=== PATIENT | female | born 1955 | race Caucasian/White ===

== ENCOUNTER 2019-05-20 11:20 | Inpatient (IN) | payer MEDICARE, MEDICAID ==
[~2019-05-20] VITALS: Ht 167.6 cm; Wt 72.6 kg
[~2019-05-20 11:20] MED LIST: DRON400T PO; LISI2.5T47 PO; LORA-653 PO; MORP1TAB12 PO; PERCOT PO; RANO500T2 PO
[2019-05-20 12:41] LABS: Basophils # (auto) 0 uL; Basophils % (auto) 0.7 % (0.0-2.0); Eosinophils # (auto) 0.1 uL; Hematocrit 49.6 % (36.0-46.0); Hemoglobin 16.6 g/dL (12.2-16.2); Lymphocytes # (auto) 1.1 uL; Lymphocytes % (auto) 19.5 % (10.0-50.0); Mean Corpuscular Hemoglobin 30.4 pg (28.0-32.0); Mean Corpuscular Hgb Conc. 33.5 g/dL (32.0-36.0); Mean Corpuscular Volume 90.5 fL (80.0-100.0); Monocytes # (auto) 0.3 uL; Monocytes % (auto) 5.4 % (0.0-12.0); Neutrophils # (auto) 4.3 uL; Neutrophils % (auto) 73.4 % (37.0-80.0); Nucleated Red Blood Cells % 0.1 %; Platelet Count (auto) 102 10^3/uL (140-450); Red Blood Cells 5.48 10^6/uL (4.0-5.20); White Blood Cell 5.8 10^3/uL (4.4-10.8)
[2019-05-20 12:51] LABS: Alanine Aminotransferase 39 U/L (13-56); Albumin 3.7 g/dL (3.4-5.0); Anion Gap 9 (5-15); Aspartate Aminotransferase 31 U/L (15-37); BUN/Creatinine Ratio 22.5; Blood Urea Nitrogen 18 mg/dL (7-18); Calcium 9.3 mg/dL (8.5-10.1); Carbon Dioxide 25 mmol/L (21-32); Chloride 108 mmol/L (98-107); GFR African American 92 mL/min; GFR Non-African American 76 mL/min; Glucose 139 mg/dL (74-106); Magnesium 2.5 mg/dL (1.6-2.6); Potassium 3.9 mmol/L (3.5-5.1); Sodium 142 mmol/L (136-145)
[2019-05-20 12:56] LABS: Alkaline Phosphatase 199 U/L (45-117); Bilirubin, Total 0.5 mg/dL (0.2-1.0); Total Protein 8.3 g/dL (6.4-8.2)
[2019-05-20] MEDS ORDERED: IOHEXOL 350 MG/ML 100ML IJ ONE (13:28)
[2019-05-20] MEDS ORDERED: ACETAMINOPHEN 500 MG TAB PO PRN (14:45)
[2019-05-20] MEDS ORDERED: NITROGLYCERIN 0.4 MG SL TAB SL PRN (14:45)
[2019-05-20] MEDS ORDERED: PROMETHAZINE HCL 25 MG/ML 1ML IV PRN (14:45)
[2019-05-20] MEDS ORDERED: OXYCODONE W/ ACETAMINOPHEN 5/325MG TABLET PO PRN (14:45)
[2019-05-20] MEDS ORDERED: TEMAZEPAM 15 MG CAP PO PRN (14:45)
[2019-05-20] MEDS ORDERED: MORPHINE SULFATE 4 MG/ML SYR/VIAL IV PRN (14:45)
[2019-05-20] MEDS ORDERED: MORPHINE SULF INJ 2 MG/ML SYRINGE 1ML IV PRN (14:45)
[2019-05-20] MEDS: SODIUM CHLORIDE 0.9% 1,000 ML IV SCH (14:57)
[2019-05-20 16:01] LABS: CRP High Sensitivity < 0.02 mg/dL (< 0.3)
[2019-05-20 16:45] VITALS: BP 154/76
--- NOTE | 2019-05-20 16:45 | NUR ---
Telemetry admit from ER AMYANSHUL R admitted to Telemetry unit after verbal report received. Patient oriented to Allyn Chin, primary RN, unit, room, bed, and unit policies regarding patient care and visiting hours. Patient now on continuous telemetry monitoring, tele box #8 and telemetry reading on arrival to unit is sinus bradycardia @ 58 bpm. IV to left forearm, 20 gauge, patent and infusing 0.9% NS @ 75 ml/hr. Patient placed on bedside oxygen, weighed by bedscale and encouraged to call if they need something. All questions and concerns addressed, patient verbalized understanding.
[2019-05-20 18:08] VITALS: BP 146/93
--- NOTE | 2019-05-20 19:30 | NUR ---
Care endorsed to ALAN High, night nurse.
[2019-05-20 20:00] VITALS: BP 134/90
[2019-05-20 22:00] VITALS: BP 134/90
[2019-05-20] MEDS ORDERED: RANOLAZINE ER 500 MG TAB PO SCH (22:00)
[2019-05-20] MEDS ORDERED: DRONEDARONE HCL 400 MG TAB PO SCH (22:00)
[2019-05-20] MEDS ORDERED: DRONEDARONE HYDROCHLORIDE 400 MG PO SCH (22:00)
[2019-05-20] MEDS ORDERED: ATORVASTATIN 20 MG TAB PO SCH (22:00)
[2019-05-20] MEDS ORDERED: METOPROLOL TARTRATE 25 MG TAB PO SCH (22:00)
--- NOTE | 2019-05-20 23:57 | NUR ---
Opening Shift Note Assumed care of patient, awake and alert. No S/S of distress/SOB or pain. Instructed on POC and to call for assist PRN, will continue to monitor for changes Q1hr and PRN. Addendum: 05/20/19 at 2359 by FROILAN MACIEL RN RN Time of initial assessment, 1999
[2019-05-21] MEDS: SODIUM CHLORIDE 0.9% 1,000 ML IV SCH (04:05)
[2019-05-21 05:00] VITALS: BP 152/68
--- NOTE | 2019-05-21 07:00 | NUR ---
Patient's room checked frequently throughout the night. Patient noted sleeping comfortably. No distress or complaints. This morning patient noted with increased agitation. She states "I can get better care than this at home". I questioned patient and asked was there anything I can do to help and could she wait until she is seen by the MD before departure. She replied with, no. Telemetry box noted in the bed. IV pulled out of her left arm with cannula intact. Patient left AMA. Tele box delivered to BRYAN.
[2019-05-21 07:01] LABS: Cholesterol 173 mg/dL (< 200); Triglycerides 89 mg/dL (< 150)
[2019-05-21 07:03] LABS: HDL Cholesterol 74 mg/dL (40-59); LDL Cholesterol 99 mg/dL (< 100)
[2019-05-21] MEDS ORDERED: ENOXAPARIN SOD 40 MG/0.4 ML SYRINGE SC SCH (10:00)
[2019-05-21] MEDS ORDERED: LISINOPRIL 5 MG TAB PO SCH (10:00)
[2019-05-21] MEDS ORDERED: PANTOPRAZOLE 40 MG TAB PO SCH (10:00)
[2019-05-21] MEDS ORDERED: NITROGLYCERIN 0.2MG/HR TOPICAL PATCH TD SCH (10:00)
[2019-05-21] MEDS ORDERED: ASPirin 81 mg TAB PO SCH (10:00)
== END 2019-05-21 07:00 | disposition left against medical advice (07) | DRG 313 ==
LOC: ER 11:25 → TELE 11:26 → TELE-WESTW 15:40
PROVIDERS: ADMIT Internal Medicine; ATTEND Internal Medicine
DX: R07.89 Other chest pain (principal); R73.9 Hyperglycemia, unspecified; I11.0 Hypertensive heart disease with heart failure; D69.6 Thrombocytopenia, unspecified; I50.9 Heart failure, unspecified; J44.9 Chronic obstructive pulmonary disease, unspecified; E78.5 Hyperlipidemia, unspecified; R56.9 Unspecified convulsions; I45.6 Pre-excitation syndrome; G89.4 Chronic pain syndrome; I25.10 Atherosclerotic heart disease of native coronary artery without angina pectoris; F17.210 Nicotine dependence, cigarettes, uncomplicated; I48.91 Unspecified atrial fibrillation; Z90.49 Acquired absence of other specified parts of digestive tract; Z90.710 Acquired absence of both cervix and uterus; Z82.5 Family history of asthma and other chronic lower respiratory diseases; Z85.41 Personal history of malignant neoplasm of cervix uteri; I25.2 Old myocardial infarction; Z88.5 Allergy status to narcotic agent; Z53.21 Procedure and treatment not carried out due to patient leaving prior to being seen by health care provider
CPT/HCPCS: 36415; 71045; 71275; 80053; 80061; 82550; 83605; 83735; 83880; 84484; 85025; 85652; 86141; 87040; 93005; 94761; G0378

== ENCOUNTER 2019-07-27 14:53 | Inpatient (IN) | payer MEDICARE, MEDICAID | END 2019-07-30 18:43 | disposition home or self-care (01) | LOC: TELE-WESTW 20:51 → ER 14:53 → TELE-WESTW 14:54 | DX: R53.1 Weakness (principal); N39.0 Urinary tract infection, site not specified; L02.414 Cutaneous abscess of left upper limb; F11.20 Opioid dependence, uncomplicated; I11.0 Hypertensive heart disease with heart failure; D69.6 Thrombocytopenia, unspecified; I25.10 Atherosclerotic heart disease of native coronary artery without angina pectoris; J44.9 Chronic obstructive pulmonary disease, unspecified; E78.5 Hyperlipidemia, unspecified; G89.4 Chronic pain syndrome; G25.0 Essential tremor; M54.2 Cervicalgia ==

== ENCOUNTER 2023-03-29 08:23 | Inpatient (IN) | payer MEDICARE, MEDICAID ==
[~2023-03-29] VITALS: Ht 160 cm; Wt 73.3 kg
[~2023-03-29 08:23] MED LIST changes: +DOXY-286 PO; -LORA-653 PO; +LORA0.5T19 PO
[2023-03-29 08:57] LABS: Basophils # (auto) 0 10 ^3/uL (0-0.2); Basophils % (auto) 0.5 % (0.0-2.0); Eosinophils # (auto) 0 10 ^3/uL (0-0.8); Eosinophils % (auto) 0.1 % (0.0-7.0); Hematocrit 43.3 % (36.0-46.0); Hemoglobin 14.5 g/dL (12.2-16.2); Lymphocytes # (auto) 0.7 10 ^3/uL (0.4-5.4); Lymphocytes % (auto) 13.3 % (10.0-50.0); Mean Corpuscular Hgb Conc. 33.5 g/dL (32.0-36.0); Mean Corpuscular Volume 89.4 fL (80.0-100.0); Monocytes # (auto) 0.4 10 ^3/uL (0-1.3); Monocytes % (auto) 7.7 % (0.0-12.0); Neutrophils % (auto) 78.4 % (37.0-80.0); Nucleated Red Blood Cells % 0.1 %; Red Blood Cells 4.85 10^6/uL (4.0-5.20); Red Cell Distribution Width 13.6 % (11.8-14.3); White Blood Cell 5.1 10^3/uL (4.4-10.8)
[2023-03-29 09:04] LABS: INR 1.12 (0.9-1.15); Partial Thromboplastin Time 36.7 sec (24.6-33.4)
[2023-03-29] MEDS ORDERED: dilTIAZem 25 MG/5 ML VIAL IV ONE (09:15)
[2023-03-29] MEDS ORDERED: dilTIAZem 125mg/125ml BAG KIT 125 ML IV ONE (09:15)
[2023-03-29 09:17] LABS: Albumin 3.4 g/dL (3.4-5.0); Calcium 8.6 mg/dL (8.5-10.1); Potassium 4.4 mmol/L (3.5-5.1)
[2023-03-29 09:22] LABS: BUN/Creatinine Ratio 24.6 (10.0-20.0); Bilirubin, Total 1.1 mg/dL (0.2-1.0); Total Protein 6.3 g/dL (6.4-8.2)
[2023-03-29] MEDS ORDERED: AMIODARONE HCL 150 MG in D5W 5% 100 ML IV ONE (09:45)
[2023-03-29] MEDS ORDERED: AMIODARONE 450mg/250ml AE 250 ML IV SCH (10:00)
[2023-03-29] MEDS ORDERED: FUROSEMIDE 40 MG/4 ML VIAL IV ONE (11:00)
[2023-03-29 12:20] LABS: Urine Bacteria FEW /hpf (None Seen); Urine Blood Negative /uL (Negative); Urine Specific Gravity 1.008 (1.001-1.035); Urine WBC 8 /hpf (0 - 5)
[2023-03-29 14:03] LABS: Cholesterol 131 mg/dL (< 200)
[2023-03-29 14:06] LABS: HDL Cholesterol 63 mg/dL (40-59); LDL Cholesterol 61 mg/dL (< 100); Triglycerides 76 mg/dL (< 150)
[2023-03-29] MEDS ORDERED: NITROGLYCERIN 0.4 MG SL TAB SL PRN (14:30)
[2023-03-29] MEDS ORDERED: MORPHINE SULFATE INJ 2 MG/ml SYRG IV PRN (14:30)
[2023-03-29] MEDS ORDERED: ALBUTEROL SULF 2.5 MG/0.5ML(0.5%) NEB SOLN NEB PRN (15:30)
[2023-03-29] MEDS ORDERED: NICOTINE 7MG/24HR TOPICAL PATCH TD ONE (15:30)
[2023-03-29] MEDS ORDERED: IPRATROPIUM BROM 0.5 MG/2.5ML INH SOL NEB PRN (15:30)
[2023-03-29] MEDS: cefTRIAXone 1GM/50ML D5W 50 ML IV SCH (15:36)
[2023-03-29 15:57] LABS: Alcohol, Urine < 3.0 mg/dL (0-10); Amphetamine Screen, Urine NEGATIVE (NEGATIVE); Barbiturate Scree,Urine NEGATIVE (NEGATIVE); Benzodiazephine Screen, Urine NEGATIVE (NEGATIVE); Cannabinoid Screen, Urine NEGATIVE (NEGATIVE); Cocaine Screen, Urine NEGATIVE (NEGATIVE); Opiate Scree,Urine NEGATIVE (NEGATIVE); Phencyclidine Screen, Urine NEGATIVE (NEGATIVE)
[2023-03-29] MEDS ORDERED: DIGOXIN (250MCG/ML) 2 ML AMPULE IV ONE (16:15)
[2023-03-29 17:23] VITALS: BP 115/74
[2023-03-29 19:57] LABS: Cholesterol 111 mg/dL (< 200); HDL Cholesterol 56 mg/dL (40-59); LDL Cholesterol 53 mg/dL (< 100); Triglycerides 80 mg/dL (< 150)
[2023-03-29] MEDS: AMIODARONE 450mg/250ml AE 250 ML IV SCH (20:30)
[2023-03-29] MEDS: LISINOPRIL 5 MG TAB PO SCH (22:44)
[2023-03-29] MEDS: MORPHINE SULF 15mg ER tab PO SCH (22:44)
[2023-03-29] MEDS: ATORVASTATIN 20 MG TAB PO SCH (22:44)
[2023-03-29] MEDS: RANOLAZINE ER 500 MG TAB PO SCH (22:45)
[2023-03-29] MEDS: METOPROLOL TARTRATE 50 MG TAB PO SCH (22:45)
[2023-03-29] MEDS: ENOXAPARIN SOD 60 MG/0.6 ML SYRINGE SC SCH (22:45)
[2023-03-29 23:49] VITALS: BP 133/105
[2023-03-30] VITALS (7 sets, daily range): BP systolic 99–136; BP diastolic 54–78
[2023-03-30 07:00] LABS: Basophils # (auto) 0 10 ^3/uL (0-0.2); Basophils % (auto) 0.4 % (0.0-2.0); Eosinophils # (auto) 0 10 ^3/uL (0-0.8); Eosinophils % (auto) 0.2 % (0.0-7.0); Hematocrit 38.4 % (36.0-46.0); Hemoglobin 13.2 g/dL (12.2-16.2); Lymphocytes # (auto) 1.1 10 ^3/uL (0.4-5.4); Lymphocytes % (auto) 26.3 % (10.0-50.0); Mean Corpuscular Hemoglobin 30.6 pg (28.0-32.0); Mean Corpuscular Hgb Conc. 34.3 g/dL (32.0-36.0); Mean Corpuscular Volume 89.1 fL (80.0-100.0); Monocytes # (auto) 0.3 10 ^3/uL (0-1.3); Monocytes % (auto) 7.5 % (0.0-12.0); Neutrophils # (auto) 2.8 10 ^3/uL (1.6-8.6); Neutrophils % (auto) 65.6 % (37.0-80.0); Nucleated Red Blood Cells % 0.2 %; Red Blood Cells 4.31 10^6/uL (4.0-5.20); Red Cell Distribution Width 13.2 % (11.8-14.3); White Blood Cell 4.2 10^3/uL (4.4-10.8)
[2023-03-30 07:32] LABS: Albumin 2.8 g/dL (3.4-5.0); BUN/Creatinine Ratio 23.3 (10.0-20.0); Bilirubin, Total 0.5 mg/dL (0.2-1.0); Calcium 8.6 mg/dL (8.5-10.1); Total Protein 5.8 g/dL (6.4-8.2)
[2023-03-30] MEDS ORDERED: ASPirin 81 mg TAB PO SCH (10:00)
[2023-03-30] MEDS ORDERED: NICOTINE 7MG/24HR TOPICAL PATCH TD SCH (10:00)
[2023-03-30] MEDS ORDERED: PANTOPRAZOLE 40 MG/10 ML VIAL INJ IV SCH (10:00)
[2023-03-30] MEDS: cefTRIAXone 1GM/50ML D5W 50 ML IV SCH (10:28)
[2023-03-30] MEDS: METOPROLOL TARTRATE 50 MG TAB PO SCH ×2 (10:29→21:35)
[2023-03-30] MEDS: ENOXAPARIN SOD 60 MG/0.6 ML SYRINGE SC SCH ×2 (10:29→21:37)
[2023-03-30] MEDS: FUROSEMIDE 20 MG/2 ML VIAL IV SCH (10:29)
[2023-03-30] MEDS: RANOLAZINE ER 500 MG TAB PO SCH ×2 (10:30→21:35)
[2023-03-30] MEDS: MORPHINE SULF 15mg ER tab PO SCH ×2 (10:30→21:34)
[2023-03-30] MEDS: LISINOPRIL 5 MG TAB PO SCH (10:31)
[2023-03-30] MEDS: POTASSIUM CHLORIDE 8 MEQ TAB PO SCH (10:36)
[2023-03-30] MEDS: AMIODARONE 450mg/250ml AE 250 ML IV SCH (11:07)
[2023-03-30] MEDS ORDERED: NICOTINE 14 MG/24HR TOPICAL PATCH TD ONE (12:00)
[2023-03-30] MEDS: LORazepam 0.5 MG TAB PO PRN ×2 (13:01→21:41)
[2023-03-30] MEDS: ATORVASTATIN 20 MG TAB PO SCH (21:34)
[2023-03-30] MEDS: AMIODARONE HCL 200 MG TAB PO SCH (21:35)
[2023-03-31] VITALS (7 sets, daily range): BP systolic 110–127; BP diastolic 60–85
[2023-03-31 06:32] LABS: Basophils # (auto) 0 10 ^3/uL (0-0.2); Basophils % (auto) 0.5 % (0.0-2.0); Eosinophils # (auto) 0 10 ^3/uL (0-0.8); Eosinophils % (auto) 0.1 % (0.0-7.0); Hematocrit 39.8 % (36.0-46.0); Hemoglobin 13.6 g/dL (12.2-16.2); Lymphocytes % (auto) 27.1 % (10.0-50.0); Mean Corpuscular Hemoglobin 30.2 pg (28.0-32.0); Mean Corpuscular Hgb Conc. 34.1 g/dL (32.0-36.0); Mean Corpuscular Volume 88.6 fL (80.0-100.0); Monocytes # (auto) 0.4 10 ^3/uL (0-1.3); Monocytes % (auto) 9.5 % (0.0-12.0); Neutrophils # (auto) 2.4 10 ^3/uL (1.6-8.6); Neutrophils % (auto) 62.8 % (37.0-80.0); Nucleated Red Blood Cells % 0.2 %; Red Blood Cells 4.49 10^6/uL (4.0-5.20); White Blood Cell 3.8 10^3/uL (4.4-10.8)
[2023-03-31 06:54] LABS: BUN/Creatinine Ratio 30.3 (10.0-20.0); Calcium 8.5 mg/dL (8.5-10.1)
[2023-03-31] MEDS: ENOXAPARIN SOD 60 MG/0.6 ML SYRINGE SC SCH (09:36)
[2023-03-31] MEDS: cefTRIAXone 1GM/50ML D5W 50 ML IV SCH (09:36)
[2023-03-31] MEDS: NICOTINE 14 MG/24HR TOPICAL PATCH TD SCH (09:37)
[2023-03-31] MEDS: FUROSEMIDE 20 MG/2 ML VIAL IV SCH (09:37)
[2023-03-31] MEDS: AMIODARONE HCL 200 MG TAB PO SCH ×2 (09:37→22:59)
[2023-03-31] MEDS: METOPROLOL TARTRATE 50 MG TAB PO SCH ×2 (09:38→22:00)
[2023-03-31] MEDS: MORPHINE SULF 15mg ER tab PO SCH ×2 (09:38→22:54)
[2023-03-31] MEDS: LORazepam 0.5 MG TAB PO PRN (09:38)
[2023-03-31] MEDS: RANOLAZINE ER 500 MG TAB PO SCH ×2 (09:38→22:53)
[2023-03-31] MEDS: POTASSIUM CHLORIDE 8 MEQ TAB PO SCH (09:39)
[2023-03-31] MEDS ORDERED: methylPREDNISolone SOD SUCC 40 MG/ML VL IV ONE (12:15)
[2023-03-31] MEDS ORDERED: methylPREDNISolone SOD SUCC 125 MG/2 ML VL IV ONE (17:00)
[2023-03-31] MEDS: ATORVASTATIN 20 MG TAB PO SCH (22:54)
[2023-03-31] MEDS: APIXABAN 5 MG TAB PO SCH (22:54)
[2023-04-01 05:00] VITALS: BP 120/57
[2023-04-01 06:52] LABS: Basophils # (auto) 0 10 ^3/uL (0-0.2); Basophils % (auto) 0.8 % (0.0-2.0); Eosinophils # (auto) 0 10 ^3/uL (0-0.8); Eosinophils % (auto) 0.3 % (0.0-7.0); Hematocrit 40.1 % (36.0-46.0); Hemoglobin 14.2 g/dL (12.2-16.2); Lymphocytes # (auto) 0.6 10 ^3/uL (0.4-5.4); Lymphocytes % (auto) 9.5 % (10.0-50.0); Mean Corpuscular Hemoglobin 31.2 pg (28.0-32.0); Mean Corpuscular Hgb Conc. 35.3 g/dL (32.0-36.0); Mean Corpuscular Volume 88.4 fL (80.0-100.0); Monocytes # (auto) 0.2 10 ^3/uL (0-1.3); Monocytes % (auto) 3.1 % (0.0-12.0); Neutrophils % (auto) 86.3 % (37.0-80.0); Nucleated Red Blood Cells % 0.8 %; Red Blood Cells 4.54 10^6/uL (4.0-5.20); Red Cell Distribution Width 13.3 % (11.8-14.3); White Blood Cell 5.8 10^3/uL (4.4-10.8)
[2023-04-01 08:00] VITALS: BP 104/50
[2023-04-01 08:30] VITALS: BP 104/50
[2023-04-01] MEDS: cefTRIAXone 1GM/50ML D5W 50 ML IV SCH (08:41)
[2023-04-01] MEDS: LORazepam 0.5 MG TAB PO PRN ×2 (08:49→22:20)
[2023-04-01] MEDS: FUROSEMIDE 20 MG/2 ML VIAL IV SCH (10:09)
[2023-04-01] MEDS: POTASSIUM CHLORIDE 8 MEQ TAB PO SCH (10:10)
[2023-04-01] MEDS: APIXABAN 5 MG TAB PO SCH ×2 (10:10→22:19)
[2023-04-01] MEDS: RANOLAZINE ER 500 MG TAB PO SCH ×2 (10:10→22:23)
[2023-04-01] MEDS: AMIODARONE HCL 200 MG TAB PO SCH ×2 (10:17→22:20)
[2023-04-01] MEDS: predniSONE 20 MG TAB PO SCH (10:18)
[2023-04-01] MEDS: MORPHINE SULF 15mg ER tab PO SCH ×2 (10:20→22:19)
[2023-04-01] MEDS: NICOTINE 14 MG/24HR TOPICAL PATCH TD SCH (10:21)
[2023-04-01 12:30] VITALS: BP 94/41
[2023-04-01 13:39] LABS: Anion Gap 8 (5-15); BUN/Creatinine Ratio 36.7 (10.0-20.0); Blood Urea Nitrogen 33 mg/dL (7-18); Calcium 8.6 mg/dL (8.5-10.1); Carbon Dioxide 21 mmol/L (21-32); Chloride 105 mmol/L (98-107); GFR African American 80 mL/min; GFR Non-African American 66 mL/min; Glucose 160 mg/dL (74-106); Sodium 134 mmol/L (136-145)
[2023-04-01 17:00] VITALS: BP 132/50
[2023-04-01 22:00] VITALS: BP 109/51
[2023-04-01] MEDS: ATORVASTATIN 20 MG TAB PO SCH (22:20)
[2023-04-02 05:00] VITALS: BP 105/42
[2023-04-02 08:00] VITALS: BP 107/48
[2023-04-02] MEDS: cefTRIAXone 1GM/50ML D5W 50 ML IV SCH (08:00)
[2023-04-02] MEDS: LORazepam 0.5 MG TAB PO PRN (08:05)
[2023-04-02] MEDS: APIXABAN 5 MG TAB PO SCH (08:57)
[2023-04-02 08:58] VITALS: BP 107/48
[2023-04-02] MEDS: predniSONE 20 MG TAB PO SCH (08:58)
[2023-04-02] MEDS: RANOLAZINE ER 500 MG TAB PO SCH (08:59)
[2023-04-02] MEDS: POTASSIUM CHLORIDE 8 MEQ TAB PO SCH (08:59)
[2023-04-02] MEDS: MORPHINE SULF 15mg ER tab PO SCH (09:00)
[2023-04-02] MEDS: NICOTINE 14 MG/24HR TOPICAL PATCH TD SCH (09:02)
[2023-04-02] MEDS: AMIODARONE HCL 200 MG TAB PO SCH (09:03)
[2023-04-02] MEDS ORDERED: FUROSEMIDE 20 MG TAB PO SCH (10:00)
[2023-04-02] MEDS ORDERED: PRED20TA2 PO (11:40)
[2023-04-02] MEDS ORDERED: ATOR20TA50 PO (11:40)
[2023-04-02] MEDS ORDERED: POTA8TAB2 PO (11:40)
[2023-04-02] MEDS ORDERED: AMIO200T33 PO (11:40)
[2023-04-02] MEDS ORDERED: APIX5TAB PO (11:40)
[2023-04-02] MEDS ORDERED: FUR20T PO (11:40)
[2023-04-02] MEDS ORDERED: RANO500T PO (11:40)
[2023-04-02 12:37] VITALS: BP 107/48
[2023-04-02 13:00] VITALS: BP_SYST 107; BP_SYST 96; BP_DIAS 48
== END 2023-04-02 14:59 | disposition home or self-care (01) | DRG 291 ==
LOC: EDBD 08:23 → ER 08:23 → TELE 14:40 → TELE-WESTW 23:00
PROVIDERS: ADMIT Registered Nurse; ATTEND Internal Medicine
DX: I11.0 Hypertensive heart disease with heart failure (principal); I50.43 Acute on chronic combined systolic (congestive) and diastolic (congestive) heart failure; J96.00 Acute respiratory failure, unspecified whether with hypoxia or hypercapnia; F11.20 Opioid dependence, uncomplicated; N39.0 Urinary tract infection, site not specified; I48.20 Chronic atrial fibrillation, unspecified; J44.1 Chronic obstructive pulmonary disease with (acute) exacerbation; D68.69 Other thrombophilia; E78.5 Hyperlipidemia, unspecified; E66.9 Obesity, unspecified; I45.6 Pre-excitation syndrome; F17.210 Nicotine dependence, cigarettes, uncomplicated; I25.10 Atherosclerotic heart disease of native coronary artery without angina pectoris; G89.4 Chronic pain syndrome; F41.9 Anxiety disorder, unspecified; Z68.28 Body mass index [BMI] 28.0-28.9, adult; Z88.5 Allergy status to narcotic agent; Z79.01 Long term (current) use of anticoagulants; Z79.899 Other long term (current) drug therapy; I25.2 Old myocardial infarction; Z90.710 Acquired absence of both cervix and uterus; Z85.41 Personal history of malignant neoplasm of cervix uteri
CPT/HCPCS: 36415; 36600; 71045; 80048; 80053; 80061; 80307; 81001; 82805; 83036; 83880; 84443; 84484; 85025; 85610; 85730; 87040; 87086; 93005; 93306; 96365; 96366; 96375; 99291; C9113; G0378; J0696; J7060

== ENCOUNTER 2023-10-15 09:04 | Inpatient (IN) | payer MEDICARE, MEDICAID ==
[~2023-10-15] VITALS: Ht 157.5 cm; Wt 76.0 kg
[~2023-10-15 09:04] MED LIST changes: +AMIO200T33 PO; +APIX5TAB PO; +ATOR20TA50 PO; +FUR20T PO; +LORA-1120 PO; -LORA0.5T19 PO; +POTA8TAB38 PO; +PRED20TA2 PO; +RANO500T PO; -RANO500T2 PO
[2023-10-15 09:22] LABS: Basophils # (auto) 0 10 ^3/uL (0-0.2); Basophils % (auto) 0.4 % (0.0-2.0); Eosinophils # (auto) 0 10 ^3/uL (0-0.8); Eosinophils % (auto) 0.4 % (0.0-7.0); Hematocrit 47.1 % (36.0-46.0); Hemoglobin 15.8 g/dL (12.2-16.2); Lymphocytes # (auto) 0.8 10 ^3/uL (0.4-5.4); Lymphocytes % (auto) 8.4 % (10.0-50.0); Mean Corpuscular Hemoglobin 31.8 pg (28.0-32.0); Mean Corpuscular Hgb Conc. 33.6 g/dL (32.0-36.0); Mean Corpuscular Volume 94.5 fL (80.0-100.0); Monocytes # (auto) 0.8 10 ^3/uL (0-1.3); Monocytes % (auto) 7.9 % (0.0-12.0); Neutrophils # (auto) 8.3 10 ^3/uL (1.6-8.6); Neutrophils % (auto) 82.9 % (37.0-80.0); Nucleated Red Blood Cells % 0.1 %; Red Blood Cells 4.98 10^6/uL (4.0-5.20); Red Cell Distribution Width 14.5 % (11.8-14.3)
[2023-10-15 09:45] VITALS: PULSE 78; RESP 17; O2SAT 98
[2023-10-15 09:51] LABS: Alanine Aminotransferase 96 U/L (7-40); Albumin 3.1 g/dL (3.2-4.8); Alkaline Phosphatase 197 U/L (46-116); Anion Gap 8 (5-15); Aspartate Aminotransferase 181 U/L (13-40); BUN/Creatinine Ratio 23.1 (10.0-20.0); Bilirubin, Total 1.4 mg/dL (0.2-1.0); Blood Urea Nitrogen 27 mg/dL (9-23); Calcium 8.7 mg/dL (8.5-10.1); Carbon Dioxide 30 mmol/L (20-30); Chloride 94 mmol/L (98-107); Glucose 101 mg/dL (74-106); Potassium 3.3 mmol/L (3.5-5.1); Sodium 132 mmol/L (136-145); Total Protein 5.4 g/dL (5.7-8.2)
[2023-10-15] MEDS ORDERED: POTASSIUM EFFERVESENT TAB 25 MEQ PO ONE (12:45)
[2023-10-15] MEDS ORDERED: MORPHINE SULFATE INJ 2 MG/ml SYRG IV PRN (13:15)
[2023-10-15] MEDS ORDERED: ONDANSETRON HCL 4 MG/2 ML VIAL IV PRN (13:15)
[2023-10-15] MEDS ORDERED: DOCUSATE SOD 100 MG CAP PO PRN (13:15)
[2023-10-15] MEDS ORDERED: ASPirin 81 mg TAB PO ONE (16:45)
[2023-10-15 17:07] LABS: INR 1.41 (0.9-1.15); Prothrombin Time 14.5 sec (9.3-11.8)
[2023-10-15] MEDS: FUROSEMIDE 40 MG/4 ML VIAL IV SCH (17:53)
[2023-10-15] MEDS ORDERED: FUROSEMIDE 20 MG/2 ML VIAL IV SCH (18:00)
[2023-10-15 19:40] VITALS: PULSE 81; RESP 16; O2SAT 96
[2023-10-15] MEDS ORDERED: DRONEDARONE HYDROCHLORIDE 400 MG PO SCH (22:00)
[2023-10-15] MEDS ORDERED: ATORVASTATIN 20 MG TAB PO SCH (22:00)
[2023-10-15] MEDS: AMIODARONE HCL 200 MG TAB PO SCH (22:29)
[2023-10-15] MEDS: APIXABAN 5 MG TAB PO SCH (22:29)
[2023-10-15] MEDS: RANOLAZINE ER 500 MG TAB PO SCH (22:30)
[2023-10-15] MEDS: LISINOPRIL 5 MG TAB PO SCH (22:31)
[2023-10-15] MEDS: METOPROLOL TARTRATE 25 MG TAB PO SCH (23:39)
[2023-10-16] MEDS ORDERED: LACTULOSE 20Gm/30ML SOLN PO ONE (03:15)
[2023-10-16 05:32] LABS: Basophils # (auto) 0.1 10 ^3/uL (0-0.2); Basophils % (auto) 0.7 % (0.0-2.0); Eosinophils # (auto) 0.1 10 ^3/uL (0-0.8); Eosinophils % (auto) 0.6 % (0.0-7.0); Hematocrit 45.5 % (36.0-46.0); Hemoglobin 15.3 g/dL (12.2-16.2); Lymphocytes # (auto) 1.4 10 ^3/uL (0.4-5.4); Mean Corpuscular Hemoglobin 32.1 pg (28.0-32.0); Mean Corpuscular Hgb Conc. 33.7 g/dL (32.0-36.0); Mean Corpuscular Volume 95.3 fL (80.0-100.0); Monocytes % (auto) 11.9 % (0.0-12.0); Neutrophils # (auto) 5.8 10 ^3/uL (1.6-8.6); Neutrophils % (auto) 69.8 % (37.0-80.0); Nucleated Red Blood Cells % 0.1 %; Red Blood Cells 4.78 10^6/uL (4.0-5.20); Red Cell Distribution Width 14.7 % (11.8-14.3); White Blood Cell 8.3 10^3/uL (4.4-10.8)
[2023-10-16 06:00] LABS: Alanine Aminotransferase 89 U/L (7-40); Alkaline Phosphatase 158 U/L (46-116); Anion Gap 6 (5-15); BUN/Creatinine Ratio 17.9 (10.0-20.0); Blood Urea Nitrogen 19 mg/dL (9-23); Calcium 8.5 mg/dL (8.5-10.1); Carbon Dioxide 30 mmol/L (20-30); Chloride 98 mmol/L (98-107); Glucose 116 mg/dL (74-106); LDL Cholesterol 68 mg/dL (< 100); Potassium 3.6 mmol/L (3.5-5.1); Sodium 134 mmol/L (136-145); Triglycerides 109 mg/dL (< 150)
[2023-10-16 06:01] LABS: Aspartate Aminotransferase 151 U/L (13-40)
[2023-10-16 06:02] LABS: Bilirubin, Total 1.2 mg/dL (0.2-1.0); Cholesterol 100 mg/dL (< 200); HDL Cholesterol 16 mg/dL (40-59); Total Protein 5.4 g/dL (5.7-8.2)
[2023-10-16 06:21] LABS: Magnesium 1.9 mg/dL (1.6-2.6)
[2023-10-16] MEDS: FUROSEMIDE 40 MG/4 ML VIAL IV SCH ×2 (06:26→18:26)
[2023-10-16] MEDS: LACTULOSE 20Gm/30ML SOLN PO SCH ×7 (06:26→22:22)
[2023-10-16] MEDS ORDERED: MAGNESIUM OXIDE 400 MG TAB PO ONE (09:00)
[2023-10-16] MEDS ORDERED: POTASSIUM CHL 20 Meq TABLET PO ONE (09:00)
[2023-10-16] MEDS: NICOTINE 21MG/24 HR TOPICAL PATCH TD SCH (09:53)
[2023-10-16] MEDS: AMIODARONE HCL 200 MG TAB PO SCH ×2 (09:54→22:19)
[2023-10-16] MEDS: ASPirin 81 mg TAB PO SCH (09:54)
[2023-10-16] MEDS: RANOLAZINE ER 500 MG TAB PO SCH ×2 (09:55→22:19)
[2023-10-16] MEDS: METOPROLOL TARTRATE 25 MG TAB PO SCH ×2 (09:58→22:21)
[2023-10-16] MEDS: APIXABAN 5 MG TAB PO SCH ×2 (09:59→22:20)
[2023-10-16] MEDS: LISINOPRIL 5 MG TAB PO SCH ×2 (09:59→22:21)
[2023-10-16 10:13] VITALS: O2SAT 98
[2023-10-16 13:00] VITALS: BP 137/54; PULSE 47; RESP 18; TEMP 98.7; O2SAT 91
[2023-10-16] MEDS ORDERED: phytonadione 10 MG in SODIUM CHL 0.9% 50 ML IV ONE (13:45)
[2023-10-16] MEDS: SODIUM CHLORIDE 0.9% 1,000 ML IV SCH (14:00)
[2023-10-16] MEDS ORDERED: phytonadione 5 MG in SODIUM CHL 0.9% 50 ML IV ONE (15:30)
[2023-10-16 16:55] VITALS: BP 92/44; PULSE 56; RESP 18; TEMP 98.6; O2SAT 96
[2023-10-16 20:00] VITALS: PULSE 60; PULSE 62; RESP 16
[2023-10-16 21:54] VITALS: BP 155/69; PULSE 62; RESP 16; TEMP 98.3; O2SAT 93
[2023-10-16] MEDS: PANTOPRAZOLE 40 MG/10 ML VIAL INJ IV SCH (22:19)
[2023-10-16] MEDS: MECLIZINE HCL 25 MG TAB PO SCH (22:20)
[2023-10-17] VITALS (8 sets, daily range): BP systolic 100–146; BP diastolic 45–68; PULSE 48–91; RESP 16–19; TEMP 97.8–98.7; O2SAT 93–100
[2023-10-17] MEDS: LACTULOSE 20Gm/30ML SOLN PO SCH ×6 (02:00→22:00)
[2023-10-17] MEDS: FUROSEMIDE 40 MG/4 ML VIAL IV SCH ×2 (05:22→17:52)
[2023-10-17 08:01] LABS: Basophils # (auto) 0 10 ^3/uL (0-0.2); Basophils % (auto) 0.4 % (0.0-2.0); Eosinophils # (auto) 0 10 ^3/uL (0-0.8); Eosinophils % (auto) 0.6 % (0.0-7.0); Hematocrit 41.8 % (36.0-46.0); Hemoglobin 13.9 g/dL (12.2-16.2); Lymphocytes # (auto) 0.9 10 ^3/uL (0.4-5.4); Lymphocytes % (auto) 18.4 % (10.0-50.0); Mean Corpuscular Hemoglobin 31.8 pg (28.0-32.0); Mean Corpuscular Hgb Conc. 33.3 g/dL (32.0-36.0); Mean Corpuscular Volume 95.3 fL (80.0-100.0); Monocytes # (auto) 0.7 10 ^3/uL (0-1.3); Neutrophils # (auto) 3.4 10 ^3/uL (1.6-8.6); Neutrophils % (auto) 67.6 % (37.0-80.0); Nucleated Red Blood Cells % 0.1 %; Red Blood Cells 4.38 10^6/uL (4.0-5.20); Red Cell Distribution Width 14.5 % (11.8-14.3); White Blood Cell 5.1 10^3/uL (4.4-10.8)
[2023-10-17] MEDS: AMIODARONE HCL 200 MG TAB PO SCH ×2 (09:34→22:20)
[2023-10-17] MEDS: ASPirin 81 mg TAB PO SCH (09:35)
[2023-10-17] MEDS: APIXABAN 5 MG TAB PO SCH ×2 (09:35→22:20)
[2023-10-17] MEDS: LISINOPRIL 5 MG TAB PO SCH ×2 (09:35→22:25)
[2023-10-17] MEDS: MECLIZINE HCL 25 MG TAB PO SCH ×2 (09:41→22:25)
[2023-10-17] MEDS: NICOTINE 21MG/24 HR TOPICAL PATCH TD SCH (09:41)
[2023-10-17] MEDS: METOPROLOL TARTRATE 25 MG TAB PO SCH ×2 (09:42→22:21)
[2023-10-17] MEDS: PANTOPRAZOLE 40 MG/10 ML VIAL INJ IV SCH ×2 (09:46→22:20)
[2023-10-17] MEDS: RANOLAZINE ER 500 MG TAB PO SCH ×2 (09:46→22:20)
[2023-10-17] MEDS: SODIUM CHLORIDE 0.9% 1,000 ML IV SCH ×2 (10:00→22:47)
[2023-10-18] VITALS (8 sets, daily range): BP systolic 97–142; BP diastolic 36–67; PULSE 46–62; RESP 16–18; TEMP 98.3–100.5; O2SAT 90–97
[2023-10-18] MEDS: LACTULOSE 20Gm/30ML SOLN PO SCH ×6 (01:47→22:12)
[2023-10-18] MEDS: FUROSEMIDE 40 MG/4 ML VIAL IV SCH ×2 (05:31→17:28)
[2023-10-18 06:13] LABS: Alanine Aminotransferase 71 U/L (7-40); Alkaline Phosphatase 138 U/L (46-116); Anion Gap 6 (5-15); BUN/Creatinine Ratio 18.5 (10.0-20.0); Blood Urea Nitrogen 15 mg/dL (9-23); Calcium 7.6 mg/dL (8.7-10.4); Carbon Dioxide 29 mmol/L (20-30); Chloride 98 mmol/L (98-107); Glucose 99 mg/dL (74-106); Potassium 3.3 mmol/L (3.5-5.1); Sodium 133 mmol/L (136-145)
[2023-10-18 06:14] LABS: Albumin 2.5 g/dL (3.2-4.8); Aspartate Aminotransferase 134 U/L (13-40); Total Protein 4.5 g/dL (5.7-8.2)
[2023-10-18 08:37] LABS: Bilirubin, Total 1.5 mg/dL (0.2-1.0)
[2023-10-18] MEDS: ASPirin 81 mg TAB PO SCH (10:02)
[2023-10-18] MEDS: APIXABAN 5 MG TAB PO SCH ×2 (10:02→22:12)
[2023-10-18] MEDS: AMIODARONE HCL 200 MG TAB PO SCH ×2 (10:02→22:10)
[2023-10-18] MEDS: PANTOPRAZOLE 40 MG/10 ML VIAL INJ IV SCH ×2 (10:02→22:12)
[2023-10-18] MEDS: RANOLAZINE ER 500 MG TAB PO SCH ×2 (10:02→22:08)
[2023-10-18] MEDS: NICOTINE 21MG/24 HR TOPICAL PATCH TD SCH (10:02)
[2023-10-18] MEDS: MECLIZINE HCL 25 MG TAB PO SCH ×2 (10:03→22:11)
[2023-10-18] MEDS: LISINOPRIL 5 MG TAB PO SCH ×2 (10:03→22:10)
[2023-10-18] MEDS: METOPROLOL TARTRATE 25 MG TAB PO SCH ×2 (10:03→22:12)
[2023-10-18] MEDS ORDERED: POTASSIUM EFFERVESENT TAB 25 MEQ PO ONE (10:45)
[2023-10-18] MEDS: OXYCODONE W/ ACETAMINOPHEN 5/325MG TABLET PO PRN (14:16)
[2023-10-19] VITALS (7 sets, daily range): BP systolic 98–127; BP diastolic 54–73; PULSE 56–70; RESP 16–18; TEMP 97.8–99.8; O2SAT 91–100
[2023-10-19] MEDS: LACTULOSE 20Gm/30ML SOLN PO SCH ×6 (02:00→22:35)
[2023-10-19] MEDS: FUROSEMIDE 40 MG/4 ML VIAL IV SCH ×2 (05:28→18:55)
[2023-10-19] MEDS: OXYCODONE W/ ACETAMINOPHEN 5/325MG TABLET PO PRN (05:40)
[2023-10-19] MEDS: ASPirin 81 mg TAB PO SCH (09:40)
[2023-10-19] MEDS: PANTOPRAZOLE 40 MG/10 ML VIAL INJ IV SCH ×2 (09:40→23:14)
[2023-10-19] MEDS: RANOLAZINE ER 500 MG TAB PO SCH ×2 (09:41→22:32)
[2023-10-19] MEDS: NICOTINE 21MG/24 HR TOPICAL PATCH TD SCH (09:41)
[2023-10-19] MEDS: AMIODARONE HCL 200 MG TAB PO SCH ×2 (09:42→22:35)
[2023-10-19] MEDS: METOPROLOL TARTRATE 25 MG TAB PO SCH ×2 (09:43→22:36)
[2023-10-19] MEDS: APIXABAN 5 MG TAB PO SCH ×2 (09:43→22:33)
[2023-10-19] MEDS: LISINOPRIL 5 MG TAB PO SCH ×2 (09:44→22:34)
[2023-10-19] MEDS: MECLIZINE HCL 25 MG TAB PO SCH ×2 (09:59→22:33)
[2023-10-19 11:16] LABS: Hepatitis B Core Total AB React (Negative)
[2023-10-19] MEDS ORDERED: POTASSIUM CHL 20 Meq TABLET PO ONE (13:00)
[2023-10-19] MEDS: LORazepam 0.5 MG TAB PO PRN (18:55)
[2023-10-19] MEDS ORDERED: LORazepam 2MG/ML-1ML VIAL IV PRN (22:30)
[2023-10-19 23:53] LABS: Folate (Folic Acid) 16.19 ng/mL (>5.38)
[2023-10-20] MEDS: LACTULOSE 20Gm/30ML SOLN PO SCH ×3 (03:30→21:37)
[2023-10-20 05:00] VITALS: BP 158/83; PULSE 72; RESP 20; TEMP 98.1; O2SAT 95
[2023-10-20] MEDS: FUROSEMIDE 40 MG/4 ML VIAL IV SCH ×2 (06:15→18:14)
[2023-10-20 06:17] LABS: Basophils # (auto) 0 10 ^3/uL (0-0.2); Basophils % (auto) 0.4 % (0.0-2.0); Eosinophils # (auto) 0 10 ^3/uL (0-0.8); Hematocrit 46.3 % (36.0-46.0); Hemoglobin 15.6 g/dL (12.2-16.2); Lymphocytes # (auto) 0.6 10 ^3/uL (0.4-5.4); Lymphocytes % (auto) 10.1 % (10.0-50.0); Mean Corpuscular Hemoglobin 32.3 pg (28.0-32.0); Mean Corpuscular Hgb Conc. 33.6 g/dL (32.0-36.0); Mean Corpuscular Volume 96.1 fL (80.0-100.0); Monocytes # (auto) 0.7 10 ^3/uL (0-1.3); Monocytes % (auto) 11.3 % (0.0-12.0); Neutrophils # (auto) 4.9 10 ^3/uL (1.6-8.6); Neutrophils % (auto) 78.2 % (37.0-80.0); Nucleated Red Blood Cells % 0.1 %; Red Blood Cells 4.82 10^6/uL (4.0-5.20); Red Cell Distribution Width 15.1 % (11.8-14.3); White Blood Cell 6.2 10^3/uL (4.4-10.8)
[2023-10-20 06:47] LABS: Albumin 2.9 g/dL (3.2-4.8); Alkaline Phosphatase 137 U/L (46-116); Anion Gap 3 (5-15); Aspartate Aminotransferase 190 U/L (13-40); BUN/Creatinine Ratio 11.3 (10.0-20.0); Blood Urea Nitrogen 12 mg/dL (9-23); Calcium 7.9 mg/dL (8.7-10.4); Carbon Dioxide 33 mmol/L (20-30); Chloride 101 mmol/L (98-107); Glucose 110 mg/dL (74-106); Magnesium 1.7 mg/dL (1.6-2.6); Potassium 3.6 mmol/L (3.5-5.1); Sodium 137 mmol/L (136-145)
[2023-10-20 06:48] LABS: Bilirubin, Total 1.5 mg/dL (0.2-1.0); Total Protein 5.6 g/dL (5.7-8.2)
[2023-10-20 06:49] LABS: Alanine Aminotransferase 91 U/L (7-40)
[2023-10-20 08:00] VITALS: BP 146/83; PULSE 62; PULSE 71; RESP 20; TEMP 98.8; O2SAT 88
[2023-10-20 08:47] VITALS: BP 146/83; PULSE 62; RESP 20; TEMP 98.8; O2SAT 90
[2023-10-20] MEDS ORDERED: MAGNESIUM SULFATE 1GM/100ML 100 ML IV ONE (10:00)
[2023-10-20 10:05] LABS: INR 1.42 (0.9-1.15); Partial Thromboplastin Time 36.2 SEC (24.5-34.5); Prothrombin Time 14.6 sec (9.3-11.8)
[2023-10-20] MEDS: PANTOPRAZOLE 40 MG/10 ML VIAL INJ IV SCH ×2 (11:10→23:29)
[2023-10-20] MEDS: RANOLAZINE ER 500 MG TAB PO SCH ×2 (11:10→21:33)
[2023-10-20] MEDS: NICOTINE 21MG/24 HR TOPICAL PATCH TD SCH (11:10)
[2023-10-20] MEDS: ASPirin 81 mg TAB PO SCH (11:10)
[2023-10-20] MEDS: LISINOPRIL 5 MG TAB PO SCH ×2 (11:11→21:36)
[2023-10-20] MEDS: MECLIZINE HCL 25 MG TAB PO SCH ×2 (11:11→21:36)
[2023-10-20] MEDS: METOPROLOL TARTRATE 25 MG TAB PO SCH ×2 (11:12→21:35)
[2023-10-20] MEDS: AMIODARONE HCL 200 MG TAB PO SCH ×2 (11:12→21:34)
[2023-10-20] MEDS: APIXABAN 5 MG TAB PO SCH ×2 (11:13→21:33)
[2023-10-20 12:44] VITALS: BP 144/63; PULSE 55; RESP 17; TEMP 98.5; O2SAT 96
[2023-10-20 16:45] VITALS: BP 111/55; PULSE 51; RESP 19; TEMP 98; O2SAT 98
[2023-10-20] MEDS: LORazepam 0.5 MG TAB PO PRN (18:17)
[2023-10-20 22:00] VITALS: BP 135/65; PULSE 62; RESP 20; TEMP 99; O2SAT 97
[2023-10-21] VITALS (13 sets, daily range): BP systolic 85–117; BP diastolic 50–67; PULSE 60–80; RESP 17–20; TEMP 98.1–99; O2SAT 94–100
[2023-10-21 06:21] LABS: Basophils # (auto) 0 10 ^3/uL (0-0.2); Basophils % (auto) 0.2 % (0.0-2.0); Eosinophils # (auto) 0 10 ^3/uL (0-0.8); Hematocrit 42.8 % (36.0-46.0); Hemoglobin 14.4 g/dL (12.2-16.2); Lymphocytes # (auto) 0.7 10 ^3/uL (0.4-5.4); Lymphocytes % (auto) 11.3 % (10.0-50.0); Mean Corpuscular Hemoglobin 32.1 pg (28.0-32.0); Mean Corpuscular Hgb Conc. 33.6 g/dL (32.0-36.0); Mean Corpuscular Volume 95.6 fL (80.0-100.0); Monocytes # (auto) 0.6 10 ^3/uL (0-1.3); Monocytes % (auto) 9.5 % (0.0-12.0); Neutrophils # (auto) 5.1 10 ^3/uL (1.6-8.6); Nucleated Red Blood Cells % 0.3 %; Red Blood Cells 4.48 10^6/uL (4.0-5.20); Red Cell Distribution Width 15.1 % (11.8-14.3); White Blood Cell 6.5 10^3/uL (4.4-10.8)
[2023-10-21 06:28] LABS: Alanine Aminotransferase 80 U/L (7-40); Albumin 2.7 g/dL (3.2-4.8); Alkaline Phosphatase 118 U/L (46-116); Anion Gap 4 (5-15); Aspartate Aminotransferase 185 U/L (13-40); BUN/Creatinine Ratio 17.5 (10.0-20.0); Bilirubin, Total 1.3 mg/dL (0.2-1.0); Blood Urea Nitrogen 14 mg/dL (9-23); Calcium 7.9 mg/dL (8.5-10.1); Carbon Dioxide 35 mmol/L (20-30); Chloride 96 mmol/L (98-107); Glucose 95 mg/dL (74-106); Potassium 3.2 mmol/L (3.5-5.1); Sodium 135 mmol/L (136-145)
[2023-10-21] MEDS: FUROSEMIDE 40 MG/4 ML VIAL IV SCH ×2 (06:44→18:00)
[2023-10-21 06:46] LABS: Magnesium 1.6 mg/dL (1.6-2.6)
[2023-10-21] MEDS: ASPirin 81 mg TAB PO SCH (08:28)
[2023-10-21] MEDS: AMIODARONE HCL 200 MG TAB PO SCH ×2 (08:29→22:24)
[2023-10-21] MEDS: PANTOPRAZOLE 40 MG/10 ML VIAL INJ IV SCH ×2 (08:29→22:28)
[2023-10-21] MEDS: METOPROLOL TARTRATE 25 MG TAB PO SCH ×2 (08:29→22:00)
[2023-10-21] MEDS: APIXABAN 5 MG TAB PO SCH ×2 (08:29→22:24)
[2023-10-21] MEDS: LISINOPRIL 5 MG TAB PO SCH ×2 (08:29→22:00)
[2023-10-21] MEDS: LACTULOSE 20Gm/30ML SOLN PO SCH ×2 (08:30→22:00)
[2023-10-21] MEDS: MECLIZINE HCL 25 MG TAB PO SCH ×2 (08:30→22:25)
[2023-10-21] MEDS: NICOTINE 21MG/24 HR TOPICAL PATCH TD SCH (08:31)
[2023-10-21] MEDS: RANOLAZINE ER 500 MG TAB PO SCH ×2 (12:32→22:25)
[2023-10-21] MEDS: OXYCODONE W/ ACETAMINOPHEN 5/325MG TABLET PO PRN ×2 (12:32→22:25)
[2023-10-21] MEDS ORDERED: POTASSIUM CHL 20 Meq TABLET PO ONE (12:45)
[2023-10-21] MEDS: ALBUTEROL MEDNEB 2.5 mg/3ml NEB NEB PRN ×2 (13:04→16:25)
[2023-10-21] MEDS ORDERED: MAGNESIUM SULFATE 1GM/100ML 100 ML IV ONE (13:45)
[2023-10-21] MEDS ORDERED: MIDODRINE HCL 10 MG TAB PO ONE (14:45)
[2023-10-21] MEDS: MIDODRINE HCL 10 MG TAB PO SCH (18:21)
[2023-10-22] VITALS (13 sets, daily range): BP systolic 77–135; BP diastolic 41–80; PULSE 54–76; RESP 18–22; TEMP 97.9–98.9; O2SAT 92–98
[2023-10-22] MEDS: ALBUTEROL MEDNEB 2.5 mg/3ml NEB NEB PRN (04:28)
[2023-10-22] MEDS: MIDODRINE HCL 10 MG TAB PO SCH ×3 (06:00→17:50)
[2023-10-22] MEDS: FUROSEMIDE 40 MG/4 ML VIAL IV SCH ×2 (06:19→17:51)
[2023-10-22 06:58] LABS: Basophils # (auto) 0 10 ^3/uL (0-0.2); Basophils % (auto) 0.1 % (0.0-2.0); Eosinophils # (auto) 0 10 ^3/uL (0-0.8); Hemoglobin 13.5 g/dL (12.2-16.2); Lymphocytes # (auto) 0.6 10 ^3/uL (0.4-5.4); Monocytes # (auto) 0.3 10 ^3/uL (0-1.3)
[2023-10-22 07:00] LABS: Hematocrit 40.5 % (36.0-46.0); Lymphocytes % (auto) 12.2 % (10.0-50.0); Mean Corpuscular Hemoglobin 31.7 pg (28.0-32.0); Mean Corpuscular Hgb Conc. 33.3 g/dL (32.0-36.0); Mean Corpuscular Volume 95.4 fL (80.0-100.0); Monocytes % (auto) 7.4 % (0.0-12.0); Neutrophils # (auto) 3.7 10 ^3/uL (1.6-8.6); Neutrophils % (auto) 80.3 % (37.0-80.0); Nucleated Red Blood Cells % 0.2 %; Red Blood Cells 4.25 10^6/uL (4.0-5.20); Red Cell Distribution Width 14.9 % (11.8-14.3); White Blood Cell 4.6 10^3/uL (4.4-10.8)
[2023-10-22 07:21] LABS: Alanine Aminotransferase 65 U/L (7-40); Albumin 2.3 g/dL (3.2-4.8); Alkaline Phosphatase 101 U/L (46-116); Anion Gap 5 (5-15); Aspartate Aminotransferase 144 U/L (13-40); BUN/Creatinine Ratio 33.3 (10.0-20.0); Bilirubin, Total 1.2 mg/dL (0.2-1.0); Blood Urea Nitrogen 21 mg/dL (9-23); Calcium 7.5 mg/dL (8.5-10.1); Carbon Dioxide 35 mmol/L (20-30); Chloride 95 mmol/L (98-107); Glucose 85 mg/dL (74-106); Potassium 3.8 mmol/L (3.5-5.1); Sodium 135 mmol/L (136-145); Total Protein 4.3 g/dL (5.7-8.2)
[2023-10-22] MEDS: PANTOPRAZOLE 40 MG/10 ML VIAL INJ IV SCH ×2 (09:11→22:36)
[2023-10-22] MEDS: ASPirin 81 mg TAB PO SCH (09:11)
[2023-10-22] MEDS: AMIODARONE HCL 200 MG TAB PO SCH ×2 (09:12→22:36)
[2023-10-22] MEDS: APIXABAN 5 MG TAB PO SCH ×2 (09:12→22:36)
[2023-10-22] MEDS: MECLIZINE HCL 25 MG TAB PO SCH ×2 (09:12→22:37)
[2023-10-22] MEDS: LISINOPRIL 5 MG TAB PO SCH ×2 (09:12→22:00)
[2023-10-22] MEDS: LACTULOSE 20Gm/30ML SOLN PO SCH ×3 (09:13→22:00)
[2023-10-22] MEDS: NICOTINE 21MG/24 HR TOPICAL PATCH TD SCH (09:13)
[2023-10-22] MEDS: METOPROLOL TARTRATE 25 MG TAB PO SCH ×2 (09:14→22:37)
[2023-10-22] MEDS ORDERED: ALBUTEROL MEDNEB 2.5 mg/3ml NEB NEB SCH ×2 (10:45→14:00)
[2023-10-22] MEDS: RANOLAZINE ER 500 MG TAB PO SCH ×2 (10:45→22:36)
[2023-10-22] MEDS: LORazepam 0.5 MG TAB PO PRN (10:46)
[2023-10-22 13:37] LABS: Magnesium 1.7 mg/dL (1.6-2.6)
[2023-10-22] MEDS: ALBUTEROL MEDNEB 2.5 mg/3ml NEB NEB SCH (18:17)
[2023-10-22] MEDS: OXYCODONE W/ ACETAMINOPHEN 5/325MG TABLET PO PRN (22:38)
[2023-10-23] VITALS (16 sets, daily range): BP systolic 104–121; BP diastolic 42–63; PULSE 60–89; RESP 17–24; TEMP 97.8–100.4; O2SAT 91–99
[2023-10-23] MEDS: ALBUTEROL MEDNEB 2.5 mg/3ml NEB NEB SCH ×4 (00:07→18:14)
[2023-10-23] MEDS: LACTULOSE 20Gm/30ML SOLN PO SCH ×3 (06:00→21:40)
[2023-10-23] MEDS: FUROSEMIDE 40 MG/4 ML VIAL IV SCH ×2 (06:00→18:19)
[2023-10-23] MEDS: MIDODRINE HCL 10 MG TAB PO SCH ×3 (06:31→18:18)
[2023-10-23] MEDS: LORazepam 0.5 MG TAB PO PRN ×2 (06:45→21:35)
[2023-10-23 08:13] LABS: Alanine Aminotransferase 63 U/L (7-40); Albumin 2.7 g/dL (3.2-4.8); Alkaline Phosphatase 105 U/L (46-116); Anion Gap 5 (5-15); Aspartate Aminotransferase 129 U/L (13-40); BUN/Creatinine Ratio 24.7 (10.0-20.0); Bilirubin, Total 1.6 mg/dL (0.2-1.0); Blood Urea Nitrogen 18 mg/dL (9-23); Calcium 7.9 mg/dL (8.5-10.1); Carbon Dioxide 35 mmol/L (20-30); Chloride 92 mmol/L (98-107); Glucose 80 mg/dL (74-106); Potassium 3.8 mmol/L (3.5-5.1); Sodium 132 mmol/L (136-145); Total Protein 5.1 g/dL (5.7-8.2)
[2023-10-23 09:03] LABS: Magnesium 1.8 mg/dL (1.6-2.6)
[2023-10-23] MEDS: PANTOPRAZOLE 40 MG/10 ML VIAL INJ IV SCH ×2 (10:04→21:33)
[2023-10-23] MEDS: METOPROLOL TARTRATE 25 MG TAB PO SCH ×2 (10:04→21:39)
[2023-10-23] MEDS: ASPirin 81 mg TAB PO SCH (10:05)
[2023-10-23] MEDS: NICOTINE 21MG/24 HR TOPICAL PATCH TD SCH (10:05)
[2023-10-23] MEDS: AMIODARONE HCL 200 MG TAB PO SCH ×2 (10:06→21:34)
[2023-10-23] MEDS: MECLIZINE HCL 25 MG TAB PO SCH ×2 (10:06→21:35)
[2023-10-23] MEDS: APIXABAN 5 MG TAB PO SCH ×2 (10:06→21:34)
[2023-10-23] MEDS: LISINOPRIL 5 MG TAB PO SCH ×2 (10:07→21:40)
[2023-10-23] MEDS: RANOLAZINE ER 500 MG TAB PO SCH ×2 (11:13→21:33)
[2023-10-23] MEDS: OXYCODONE W/ ACETAMINOPHEN 5/325MG TABLET PO PRN (23:09)
[2023-10-24] VITALS (19 sets, daily range): BP systolic 98–141; BP diastolic 39–78; PULSE 56–72; RESP 15–22; TEMP 97.9–99.2; O2SAT 91–99
[2023-10-24] MEDS: ALBUTEROL MEDNEB 2.5 mg/3ml NEB NEB SCH ×4 (00:29→18:08)
[2023-10-24] MEDS: LACTULOSE 20Gm/30ML SOLN PO SCH ×3 (06:00→21:53)
[2023-10-24] MEDS: FUROSEMIDE 40 MG/4 ML VIAL IV SCH ×2 (06:00→17:54)
[2023-10-24] MEDS: MIDODRINE HCL 10 MG TAB PO SCH ×3 (06:05→17:53)
[2023-10-24 07:32] LABS: Alanine Aminotransferase 50 U/L (7-40); Albumin 2.3 g/dL (3.2-4.8); Alkaline Phosphatase 92 U/L (46-116); Anion Gap 5 (5-15); Aspartate Aminotransferase 119 U/L (13-40); BUN/Creatinine Ratio 22.7 (10.0-20.0); Blood Urea Nitrogen 15 mg/dL (9-23); Calcium 7.6 mg/dL (8.5-10.1); Carbon Dioxide 34 mmol/L (20-30); Chloride 93 mmol/L (98-107); Glucose 79 mg/dL (74-106); Potassium 3.5 mmol/L (3.5-5.1); Sodium 132 mmol/L (136-145)
[2023-10-24 07:33] LABS: Bilirubin, Total 1.4 mg/dL (0.2-1.0); Total Protein 4.5 g/dL (5.7-8.2)
[2023-10-24] MEDS: ASPirin 81 mg TAB PO SCH (09:37)
[2023-10-24] MEDS: APIXABAN 5 MG TAB PO SCH ×2 (09:37→21:53)
[2023-10-24] MEDS: AMIODARONE HCL 200 MG TAB PO SCH ×2 (09:38→21:53)
[2023-10-24] MEDS: MECLIZINE HCL 25 MG TAB PO SCH ×2 (09:39→21:52)
[2023-10-24] MEDS: LISINOPRIL 5 MG TAB PO SCH ×2 (09:39→21:51)
[2023-10-24] MEDS: METOPROLOL TARTRATE 25 MG TAB PO SCH ×2 (09:40→21:52)
[2023-10-24] MEDS: PANTOPRAZOLE 40 MG/10 ML VIAL INJ IV SCH ×2 (09:40→21:50)
[2023-10-24] MEDS: NICOTINE 21MG/24 HR TOPICAL PATCH TD SCH (09:50)
[2023-10-24] MEDS: RANOLAZINE ER 500 MG TAB PO SCH ×2 (12:23→21:53)
[2023-10-24] MEDS: OXYCODONE W/ ACETAMINOPHEN 5/325MG TABLET PO PRN (17:53)
[2023-10-24] MEDS: LORazepam 0.5 MG TAB PO PRN (21:53)
[2023-10-25] VITALS (9 sets, daily range): BP systolic 104–141; BP diastolic 43–63; PULSE 57–70; RESP 15–20; TEMP 97.5–97.9; O2SAT 92–99
[2023-10-25] MEDS: ALBUTEROL MEDNEB 2.5 mg/3ml NEB NEB SCH ×3 (00:07→12:05)
[2023-10-25] MEDS: LACTULOSE 20Gm/30ML SOLN PO SCH ×2 (06:00→14:00)
[2023-10-25] MEDS: MIDODRINE HCL 10 MG TAB PO SCH ×2 (06:30→12:00)
[2023-10-25] MEDS: FUROSEMIDE 40 MG/4 ML VIAL IV SCH (06:31)
[2023-10-25] MEDS: OXYCODONE W/ ACETAMINOPHEN 5/325MG TABLET PO PRN (06:31)
[2023-10-25] MEDS: PANTOPRAZOLE 40 MG/10 ML VIAL INJ IV SCH (09:22)
[2023-10-25] MEDS: NICOTINE 21MG/24 HR TOPICAL PATCH TD SCH (09:23)
[2023-10-25] MEDS: ASPirin 81 mg TAB PO SCH (09:24)
[2023-10-25] MEDS: APIXABAN 5 MG TAB PO SCH (09:24)
[2023-10-25] MEDS: RANOLAZINE ER 500 MG TAB PO SCH (09:24)
[2023-10-25] MEDS: MECLIZINE HCL 25 MG TAB PO SCH (09:25)
[2023-10-25] MEDS: AMIODARONE HCL 200 MG TAB PO SCH (09:25)
[2023-10-25] MEDS: LISINOPRIL 5 MG TAB PO SCH (09:26)
[2023-10-25] MEDS: METOPROLOL TARTRATE 25 MG TAB PO SCH (09:26)
[2023-10-26 13:43] LABS: Hepatitis A Total Antibody Positive (Negative); Hepatitis B Surface Antibody Negative (Negative); Hepatitis B Surface Antigen Negative (Negative)
[2023-10-26 13:46] LABS: Hepatitis C Antibody Reactive (Negative)
== END 2023-10-25 14:30 | DRG 291 ==
LOC: EDBD 09:04 → ER 09:04 → TELE 13:01 → TELE-WESTW 10-16 09:11
PROVIDERS: ADMIT Nurse Practitioner Family; ATTEND Internal Medicine Geriatric Medicine
DX: I11.0 Hypertensive heart disease with heart failure (principal); G93.41 Metabolic encephalopathy; I50.43 Acute on chronic combined systolic (congestive) and diastolic (congestive) heart failure; N17.0 Acute kidney failure with tubular necrosis; L03.116 Cellulitis of left lower limb; L03.115 Cellulitis of right lower limb; E44.1 Mild protein-calorie malnutrition; E87.1 Hypo-osmolality and hyponatremia; E72.20 Disorder of urea cycle metabolism, unspecified; R18.8 Other ascites; D68.4 Acquired coagulation factor deficiency; E87.6 Hypokalemia; K70.9 Alcoholic liver disease, unspecified; I48.0 Paroxysmal atrial fibrillation; J44.9 Chronic obstructive pulmonary disease, unspecified; K76.0 Fatty (change of) liver, not elsewhere classified; D69.59 Other secondary thrombocytopenia; I25.118 Atherosclerotic heart disease of native coronary artery with other forms of angina pectoris; E78.5 Hyperlipidemia, unspecified; F17.210 Nicotine dependence, cigarettes, uncomplicated; K76.82 Hepatic encephalopathy; R00.1 Bradycardia, unspecified; F41.9 Anxiety disorder, unspecified; I95.9 Hypotension, unspecified; M54.50 Low back pain, unspecified; G89.29 Other chronic pain; Z53.20 Procedure and treatment not carried out because of patient's decision for unspecified reasons; Z79.01 Long term (current) use of anticoagulants; Z90.49 Acquired absence of other specified parts of digestive tract; Z88.5 Allergy status to narcotic agent; Z79.899 Other long term (current) drug therapy; Z80.9 Family history of malignant neoplasm, unspecified; Z90.710 Acquired absence of both cervix and uterus; Z86.73 Personal history of transient ischemic attack (TIA), and cerebral infarction without residual deficits; Z68.30 Body mass index [BMI] 30.0-30.9, adult; Z79.891 Long term (current) use of opiate analgesic; I25.2 Old myocardial infarction; Z85.42 Personal history of malignant neoplasm of other parts of uterus
CPT/HCPCS: 36415; 70450; 71045; 76705; 80053; 80061; 82140; 82607; 82746; 83036; 83735; 83880; 84132; 84443; 84484; 85025; 85610; 85730; 86704; 86706; 86708; 86803; 87340; 93005; 93306; 93886; 93970; 94640; 96374; 97110; 97116; 97530; 99291; C9113; G0378; J3430

== ENCOUNTER 2023-12-05 14:37 | Emergency (ER) | payer MEDICARE, MEDICAID ==
[~2023-12-05] VITALS: Ht 162.6 cm; Wt 54.5 kg
[~2023-12-05 14:37] MED LIST changes: -DOXY-286 PO
[2023-12-05 15:10] VITALS: PULSE 61; RESP 20; O2SAT 94
[2023-12-05] MEDS ORDERED: LORazepam 2MG/ML-1ML VIAL IV ONE (16:45)
[2023-12-05] MEDS ORDERED: HYDROmorphone HCL 2 MG/ML VL/or syr IV ONE (16:45)
[2023-12-05 17:24] LABS: Basophils # (auto) 0 10 ^3/uL (0-0.2); Basophils % (auto) 0.3 % (0.0-2.0); Eosinophils # (auto) 0.1 10 ^3/uL (0-0.8); Eosinophils % (auto) 0.6 % (0.0-7.0); Hematocrit 41.7 % (36.0-46.0); Hemoglobin 13.7 g/dL (12.2-16.2); Lymphocytes # (auto) 1.6 10 ^3/uL (0.4-5.4); Lymphocytes % (auto) 14.4 % (10.0-50.0); Mean Corpuscular Hemoglobin 32.2 pg (28.0-32.0); Mean Corpuscular Hgb Conc. 32.8 g/dL (32.0-36.0); Mean Corpuscular Volume 98.1 fL (80.0-100.0); Monocytes # (auto) 1.3 10 ^3/uL (0-1.3); Monocytes % (auto) 11.3 % (0.0-12.0); Neutrophils # (auto) 8.3 10 ^3/uL (1.6-8.6); Neutrophils % (auto) 73.4 % (37.0-80.0); Nucleated Red Blood Cells % 0.1 %; Red Blood Cells 4.25 10^6/uL (4.0-5.20); Red Cell Distribution Width 15.7 % (11.8-14.3); White Blood Cell 11.3 10^3/uL (4.4-10.8)
[2023-12-05 17:41] LABS: Alanine Aminotransferase 83 U/L (7-40); Albumin 2.4 g/dL (3.2-4.8); Alkaline Phosphatase 158 U/L (46-116); Anion Gap 4 (5-15); Aspartate Aminotransferase 115 U/L (13-40); BUN/Creatinine Ratio 28.6 (10.0-20.0); Bilirubin, Total 2.4 mg/dL (0.2-1.0); Blood Urea Nitrogen 14 mg/dL (9-23); Calcium 7.8 mg/dL (8.7-10.4); Carbon Dioxide 29 mmol/L (20-30); Chloride 99 mmol/L (98-107); Glucose 106 mg/dL (74-106); Lipase 35 U/L (12-53); Potassium 4.4 mmol/L (3.5-5.1); Sodium 132 mmol/L (136-145); Total Protein 5.2 g/dL (5.7-8.2)
[2023-12-05 20:05] VITALS: PULSE 59; RESP 20; O2SAT 93
[2023-12-06 08:00] VITALS: PULSE 63; RESP 14; O2SAT 97
[2023-12-06 10:00] VITALS: TEMP 98.2
[2023-12-06 14:28] VITALS: BP 108/68; PULSE 68; RESP 14; O2SAT 96
== END 2023-12-06 14:35 | disposition home or self-care (01) ==
LOC: ER 14:37 → EDBD 14:37 → ER 12-06 14:35
DX: J90 Pleural effusion, not elsewhere classified (principal); R18.8 Other ascites; K74.60 Unspecified cirrhosis of liver
CPT/HCPCS: 36415; 74176; 80053; 83690; 85025; 96374; 96375; 99285; J1170; J2060